=== PATIENT | male | born 1950 ===

== ENCOUNTER 2021-10-02 18:14 | Emergency (ER) | payer SELFPAY ==
[2021-10-02] MEDS ORDERED: Sodium Bicarbonate 8.4% 50 MEQ/50 ML Syringe IV ONE (18:15)
[2021-10-02] MEDS ORDERED: EPINEPHrine 1:10,000 1 MG/10 ML Syringe IV ONE (18:15)
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
[2021-10-02] MEDS ORDERED: EPINEPHrine 1:10,000 1 MG/10 ML Syringe ONE (22:28)
[2021-10-02] MEDS ORDERED: Sodium Bicarbonate 8.4% 50 MEQ/50 ML Syringe ONE (22:30)
== END 2021-10-02 22:00 | disposition expired ==
LOC: EDBD → DL.ED 18:14
DX: I46.9 Cardiac arrest, cause unspecified (principal); Z88.5 Allergy status to narcotic agent
CPT/HCPCS: 92950; 99285; J0171